=== PATIENT | male | born 1980 | race Caucasian/White ===

== ENCOUNTER 2017-03-10 21:09 | Emergency (ER) | payer OTHER, MEDICAID, SELFPAY | END 2017-03-10 23:51 | disposition home or self-care (01) | PROVIDERS: Emergency Provider Emergency Medicine; Visit Provider Emergency Medicine | DX: R07.9 Chest pain, unspecified (principal); K29.00 Acute gastritis without bleeding; F17.210 Nicotine dependence, cigarettes, uncomplicated | CPT/HCPCS: 71020; 71250; 74176; 80053; 80061; 82150; 82550; 82553; 83690; 84484; 85025; 93005; 93041; 96374; 96375; 99285 ==